=== PATIENT | male | born 1955 | race Caucasian/White ===

== ENCOUNTER → 2018-04-30 | Outpatient (CLI) | payer BC | LOC: LABPAT 10:15 | PROVIDERS: ATTEND Surgery | DX: Z01.818 Encounter for other preprocedural examination (principal); Z01.812 Encounter for preprocedural laboratory examination; K43.0 Incisional hernia with obstruction, without gangrene | CPT/HCPCS: 93005 ==

== ENCOUNTER 2018-05-05 06:45 | Day surgery (SDC) | payer BC ==
[2018-04-30 14:33] VITALS: BMI 27.8
[~2018-05-05 06:45] MED LIST: CLINDAMYCIN 900 MG in DEXTROSE 5% IN WATER 50 ML IVPB ONE; DEXAMETHASONE SOD PHOSPHATE 10 MG/ML 1 ML VIAL IV ONE; HEPARIN SODIUM,PORCINE 5,000 UNIT/ML 1 ML VIAL SQ ONE; HYDROmorphone 0.5 MG/0.5 ML SYRINGE IVP PRN; LEVOFLOXACIN 750MG-D5W PMX 750 MG in DEXTROSE/WATER 1 150ML.BAG IVPB ONE; MIDAZOLAM 2 MG/2 ML VIAL IV PRN; ONDANSETRON 4 MG/2 ML VIAL IVP ONE
[2018-05-05] MEDS: LACTATED RINGERS 1,000 ML IV SCH ×2 (07:52→08:35)
[2018-05-05] MEDS ORDERED: LIDOCAINE 1% 20 ML VIAL (10MG/ML) FOR IV START INTRADERMA ONE (07:53)
[2018-05-05] MEDS ORDERED: ePHEDrine SULFATE/0.9% NACL/PF 50 MG/5 ML SYRINGE IV ONE (08:28)
[2018-05-05] MEDS ORDERED: PROPOFOL 10 MG/ML 20 ML VIAL IV ONE (08:28)
[2018-05-05] MEDS ORDERED: ROCURONIUM BROMIDE 10 MG/ML 10 ML VIAL IV ONE (08:28)
[2018-05-05] MEDS ORDERED: fentaNYL (PF) 50 MCG/ML 2 ML AMP ONE (08:28)
[2018-05-05] MEDS ORDERED: ROPIVACAINE 5 MG/ML 30 ML VIAL ONE (08:28)
[2018-05-05] MEDS ORDERED: LIDOCAINE 1% INJ 10MG/ML (20 ML MDV) ONE (08:28)
[2018-05-05] MEDS ORDERED: NEOSTIGMINE 1 MG/ML 10 ML VIAL ONE (08:28)
[2018-05-05] MEDS ORDERED: GLYCOPYRROLATE 0.2 MG/ML 2 ML VIAL ONE (08:28)
[2018-05-05] MEDS ORDERED: KETOROLAC 30 MG/ML 1 ML VIAL ONE (08:28)
[2018-05-05] MEDS ORDERED: BUPIVACAINE (PF) 0.25% 30 ML VIAL SQ ONE ×2 (09:03→09:36)
[2018-05-05] MEDS ORDERED: LACTATED RINGERS 1,000 ML IV ONE (09:24)
--- NOTE | 2018-05-05 09:42 | P.ONQ ---
Anesthesiology Proc Note - PNB - Peripheral Nerve Block Performed Bilateral Transversus Abdominis Time Out Performed: Yes Procedure Start Time: 08:13 Procedure Stop Time: :18 Indication: Acute Post-Operative Pain, Requested by physician Sedation Type: Awake Preparation: Sterile Prep Position: Supine Catheter: None Needle Types: On-Q Needle Size: 100mm (4") Needle Gauge: 21 Technique: Ultrasound Injectate: Other (see comment) (0.325% ropivacaine 20cc each side) Blood Aspirated: No Pain Paresthesia on Injection Noted: No Resistance on Injection: Normal Events: Uneventful and Well Tolerated
[2018-05-05 10:11] VITALS: TEMP 98
[2018-05-05] MEDS ORDERED: HYDROcodone/APAP 5-325MG 1 EACH TAB PO PRN (10:19)
[2018-05-05] MEDS ORDERED: NALOXONE 0.4 MG/ML 1 ML VIAL IV PRN (10:19)
--- NOTE | 2018-05-05 10:23 | P.OP ---
Date of Procedure: 05/05/18 Procedure(s) Performed: PREOPERATIVE DIAGNOSIS: Incisional hernia POSTOPERATIVE DIAGNOSIS: Same PROCEDURE: Incisional herniorrhaphy with mesh SURGEON: Sulema EBL: Minimal ANESTHESIA: General COMPLICATIONS: None OPERATIVE PROCEDURE: The patient was placed in the operating table in the supine position. A periumbilical incision was made using the scalpel excising a portion of the previous scar site. The subcutaneous tissues were dissected bluntly. The hernia sac was identified. The umbilical attachments to the fascia were divided using electrocautery. The hernia sac was fully excised. The hernia sac was sent to pathology. The defect in the fascia appeared to be through the previous incision site. Some of the Ethibond sutures were still intact however some appeared to be loose having torn away from the adjacent fascia. Some of the sutures were removed. The defect in the fascia actually only measured approximately 1.5 cm. This was lengthened slightly. The pre- peroneal space was dissected using blunt dissection and cautery. The 4.3 cm ventral ex mesh was placed beneath the fascia and sutured in place using trans- fascial 0 Ethibond sutures. The defect was closed using interrupted figure-of- eight 0 Ethibond sutures. The subcutaneous tissues were reapproximated using inverted 3-0 Vicryl sutures. The umbilicus was tacked back down to the fascia using a 3-0 Vicryl suture. The skin was closed using 4-0 Monocryl sutures. Skin glue was then applied. DISPOSITION: Stable to recovery room
[2018-05-05 10:30] VITALS: RESP 18
[2018-05-05 12:49] VITALS: BP 149/78; PULSE 78
== END 2018-05-05 13:05 | disposition home or self-care (01) ==
LOC: OR 06:45
PROVIDERS: ATTEND Surgery
DX: K43.2 Incisional hernia without obstruction or gangrene (principal); K21.9 Gastro-esophageal reflux disease without esophagitis; I10 Essential (primary) hypertension; Z79.899 Other long term (current) drug therapy; Z88.6 Allergy status to analgesic agent; Z88.0 Allergy status to penicillin
CPT/HCPCS: 64488; 88302; 49565; 49568; C1781; J2250; J1644; J1100; J2710; J2405; J2001; J3010; J1885; J1956; J2795; J2704

== ENCOUNTER 2019-08-16 20:24 | Emergency (ER) | payer BC ==
[2019-08-16] MEDS ORDERED: LIDOCAINE 1% INJ 10MG/ML (20 ML MDV) SQ ONE (21:03)
[2019-08-16] MEDS ORDERED: DIPH,PERTUS(ACELL)TETVAC-LF 0.5 ML VIAL IM ONE (21:03)
--- NOTE | 2019-08-16 21:22 | XR ---
EXAMINATION TYPE: XR finger RT DATE OF EXAM: 08/16/2019 COMPARISON: NONE HISTORY: Laceration TECHNIQUE: 3 views FINDINGS: I see no fracture nor dislocation. The ring finger appears intact. There is no sign of a fo reign body. IMPRESSION: Negative exam. No fracture seen.
--- NOTE | 2019-08-16 21:57 | ED ---
General Adult HPI - General Chief complaint: Wound/Laceration Stated complaint: Right ring finger laceration Time Seen by Provider: 08/16/19 20:44 Source: patient, RN notes reviewed Mode of arrival: ambulatory Limitations: no limitations - History of Present Illness Initial comments: 64-year-old male presents to the emergency department for chief complaint of laceration to the right hand. This occurred just prior to arrival. Patient states that he was using a regrinder on a car when he cut his finger. Denies any decreased range of motion in the right finger. Denies any decreased sensation. States his tetanus is not up-to-date. Denies any other injuries.Patient has no other complaints at this time including shortness of breath, chest pain, ab dominal pain, nausea or vomiting, headache, or visual changes. - Related Data Home Medications Medication Instructions Recorded Confirmed Omeprazole 20 mg PO AC-BRKFST 04/30/18 05/05/18 amLODIPine [Norvasc] 20 mg PO DAILY 04/30/18 05/05/18 Previous Rx's Medication Instructions Recorded Hydrocodone/Acetaminophen [[place] 1 - 2 each PO Q4HR PRN #10 tab 05/05/18 5-325] Clindamycin [Cleocin] 450 mg PO Q8H 5 Days #45 cap 08/16/19 Allergies Allergy/AdvReac Type Severity Reaction Status Date / Time aspirin Allergy congestion Verified 08/16/19 20:26 Penicillins Allergy Anaphylaxis Verified 08/16/19 20:26 Review of Systems ROS Statement: Those systems with pertinent positive or pertinent negative responses have been documented in the HPI. ROS Other: All systems not noted in ROS Statement are negative. Past Medical History Past Medical History: No Reported History, Prostate Disorder History of Any Multi-Drug Resistant Organisms: None Reported Past Surgical History: Hernia Repair Additional Past Surgical History / Comment(s): TURP Past Psychological History: No Psychological Hx Reported Smoking Status: Former smoker Past Alcohol Use History: Daily Past Drug Use History: None Reported General Exam Limitations: no limitations General appearance: alert, in no apparent distress Head exam: Present: atraumatic, normocephalic, normal inspection Eye exam: Present: normal appearance, PERRL, EOMI. Absent: scleral icterus, conjunctival injection, periorbital swelling ENT exam: Present: normal exam, mucous membranes moist Neck exam: Present: normal inspection. Absent: tenderness, meningismus, lymphadenopathy Respiratory exam: Present: normal lung sounds bilaterally. Absent: respiratory distress, wheezes, rales, rhonchi, stridor Cardiovascular Exam: Present: regular rate, normal rhythm, normal heart sounds. Absent: systolic murmur, diastolic murmur, rubs, gallop, clicks Extremities exam: Present: full ROM (Full range of motion of the right fourth digit including the MCP, PIP, and DIP joint.), normal capillary refill (Capillary refill less than 2 seconds in the right fourth digit.), other (Patient has a 2 cm laceration noted over the dorsal aspect of the proximal phalanx of the right fourth digit.). Absent: tenderness, pedal edema, joint swelling, calf tenderness Course Vital Signs 08/16/19 20:26 Temperature 97.8 F Pulse Rate 66 Respiratory 16 Rate Blood Pressure 159/95 O2 Sat by Pulse 97 Oximetry Procedures - Laceration Laceration #1 Consent Obtained: verbal consent Indication: laceration Site: hand Size (cm): 2 Description: linear, flap Depth: simple, single layer Anesthetic Used: lidocaine 1% Anesthesia Technique: local infiltration Amount (mls): 4 Pre-repair: wound explored, irrigated extensively (With saline pressure irrigation), deep structures intact Type of Sutures: other (Ethilon) Size of Sutures: 5-0 Number of Sutures: 5 Technique: simple, interrupted Patient Tolerated Procedure: well, no complications Medical Decision Making - Medical Decision Making 64-year-old male presents to the emergency department for a chief complaint of laceration noted to the proximal phalanx of the right fourth digit, dorsal aspect. Patient has full range motion in that finger, and vascular status intact. Wound was numbed with lidocaine and then cleaned thoroughly with saline pressure irrigation. I did an extensive infection of the finger and I do not see any evidence for tendon involvement. Wound was approximated with 5 simple interrupted sutures. There is a small area that is flap like that I discussed with patient to monitor for appropriate healing. Patient was started on clindamycin given wound was somewhat contaminated with particles from regrinder although I did attempt to scrub these out as best I could. There are no metallic foreign bodies on x-ray. I discussed follow up with primary care in 1- 2 days and returning if he has any worsening symptoms. He will return in 7-10 days for suture removal. I discussed strict return parameters for infection. Disposition Clinical Impression: Laceration Disposition: HOME SELF-CARE Condition: Good Instructions (If sedation given, give patient instructions): Care For Your Stitches (ED), Laceration (ED) Additional Instructions: Please take antibiotic as directed. Monitor for any signs of infection such as spreading or streaking redness, drainage, fever and return if these occur. If you suddenly have severe pain with bending your finger return if these occur. Otherwise follow-up with primary care in 1-2 days for a wound check. Return in 10 days for suture removal. Prescriptions: Clindamycin [Cleocin] 450 mg PO Q8H 5 Days #45 cap Is patient prescribed a controlled substance at d/c from ED?: No Referrals: Isaias Swanson DO [Primary Care Provider] - 1-2 days Time of Disposition: 21:55
[2019-08-16 22:07] VITALS: BP 149/80; PULSE 82; RESP 18; TEMP 97.9
== END 2019-08-16 22:07 | disposition home or self-care (01) ==
LOC: EC 20:24
DX: S61.214A Laceration without foreign body of right ring finger without damage to nail, initial encounter (principal); Z87.891 Personal history of nicotine dependence; Z88.0 Allergy status to penicillin; Z88.6 Allergy status to analgesic agent; Z79.899 Other long term (current) drug therapy; Z23 Encounter for immunization; W31.89XA Contact with other specified machinery, initial encounter; Y93.89 Activity, other specified; Y92.810 Car as the place of occurrence of the external cause
CPT/HCPCS: 73140; 90715; 99283; 12001; 90471; J2001

== ENCOUNTER → 2021-08-01 | Outpatient (CLI) | payer BC ==
--- NOTE | 2021-08-02 07:21 | XR ---
EXAMINATION TYPE: XR femur LT DATE OF EXAM: 08/01/2021 CLINICAL HISTORY: pain TECHNIQUE: Two views of the left femur are obtained. COMPARISON: None. FINDINGS: There is no acute fracture or dislocation seen of the femur. The hip and knee joints sylvia ear within normal limits. The overlying soft tissue appears unremarkable. IMPRESSION: There is no acute fracture or dislocation seen of the femur. ICD 10 NO FRACTURE, INITIAL EVALUATION
== END | disposition home or self-care (01) ==
LOC: RADXRMAIN 15:46
PROVIDERS: ATTEND Family Medicine
DX: M79.605 Pain in left leg (principal)